=== PATIENT | male | born 1960 | race Caucasian/White ===

== ENCOUNTER 2019-04-24 08:05 | Day surgery (SDC) | payer SELFPAY ==
--- NOTE | 2019-03-31 03:31 | HP_ITS ---
Intake Vital Signs 03/31/19 Height 5 ft 11 in 03/31/19 Weight: 195 lb 03/31/19 BMI 27.1 03/31/19 BP 146/83 H 03/31/19 Blood Pressure Location Rt brachial 03/31/19 Position Sitting 03/31/19 Respiration 16 03/31/19 Pulse 57 L 03/31/19 Pulse Source Monitor 03/31/19 Temp 98.5 F 03/31/19 Temp Source Oral 03/31/19 Pulse Oximetry (%) 97 03/31/19 Oxygen Delivery Method room air Intake Visit Reasons: Constipation/CSCOPE CONSULT Rental Salesperson Required: No Is patient in pain?: No Allergies No Known Allergies Allergy (Verified 03/31/19 15:26) Medications multivitamin 1 tab PO DAILY 03/31/19 [History Confirmed 03/31/19] omega-3 fatty acids 1,000 mg capsule 1,000 mg PO DAILY 03/31/19 [History Confirmed 03/31/19] PFSH Medical History (Updated 03/31/19 @ 15:32 by Duncan Buitrago MD) Screening for malignant neoplasm of intestine (Acute) Constipation (Acute) Acid reflux (Acute) Surgical History (Updated 03/31/19 @ 15:23 by Kimberley Henderson) Hx of hand surgery (Acute) Family History Brother Heart disease Social History (Updated 03/31/19 @ 15:34 by Duncan Buitrago MD) Smoking Status: Former smoker second hand exposure: No alcohol intake: never substance use type: does not use caffeine: Yes HPI HPI HPI: DOMINGO AGUILAR, is a 59 M who presents to the office today for HPI HPI Surgical H&P: Yes HPI: DOMINGO AGUILAR, is a 59 M who presents to the office today for 2 separate concerns. One is escalating symptoms of gastroesophageal reflux disease with postprandial indigestion. On occasions he very frequently will take [id number] ranitidine therapy. He denies any previous history of upper endoscopy. He is concerned that he may have a hiatal hernia. He also is in need of a screening colonoscopy. He denies bright red blood per rectum or melena. Is never previously had a colonoscopy. He is not aware of any family history of colon polyps or colon cancer. He states that a brother required coronary bypass grafting approximately 2007. He states he underwent some testing and was instructed he was a carrier of the process. He works in a [employer]. He does a significant amount of work and denies chest pain or palpitations shortness of breath. He has not had any weight loss. He otherwise has had a good feeling of wellness. He is not on any anticoagulants. He denies history of DVT. He enjoys a good quality of life. ROS General General: No weight change, appetite, fatigue, colon cancer, breast cancer or weakness HEENT HEENT: No difficulty swallowing, eye injury, eye surgery, swollen glands or hoarseness Endo Endocrine: No thyroid disease, diabetes mellitus, thyroid cancer, Hair loss, heat intolerance or cold intolerance Skin Skin: No rash or changing moles Musc Musculoskeletal: No back problems, arthritis, rheumatoid arthritis, gout or joint pain Cardio Cardiovascular: No murmur, pacemaker, heart disease, atrial fibrillation, high blood pressure, heart attack, heart stent, palpitations, shortness of breat with exertion or chest pain Psych Psychiatric: No depression, anxiety or hearing voices Resp Respiratory: No shortness of breath, No sleep apnea, No cough, No COPD, No asthma, No emphysema, No wheezing Gastro Gastrointestinal: No abdominal pain, No nausea or vomiting, No diarrhea, No constipation, No blood in stool, Yes acid reflux, No hemorrhoids, No ulcers, No gallbladder problem, No black,tarry stools Erik Hematologic: No blood thinners, No blood disorders, No bleeding, No anemia, No blood clots Neuro Neurologic: No system reviewed and no additional complaints, except as docu, No as per HPI, No abnormal walking, No abnormal hearing, No abnormal movements, No abnormal speech, No behavioral changes, No burning sensations, No confusion, No seizure-like activity, No unsteadiness, No dizziness, No localized weakness, No frequent falls, No headache(s), No lack of coordination, No loss of vision, No memory loss, No numbness, No other visual disturbances, No radiating pain, No restless legs, No sensory deficit, No fainting, No tingling, No tremor(s), No weakness, No other Exam Const General: cooperative, healthy appearing, comfortable, no acute distress Nutritional Appearance: average body habitus Orientation: alert, awake [facility] Head: normal to inspection Resp Effort & Inspection: normal respiratory effort Auscultation: clear to auscultation bilaterally Cardio Rate: regular rate Rhythm: regular rhythm Heart Sounds: no murmurs GI Palpation: soft Auscultation: normal bowel sounds Skin Lesions: no lesions Neuro Cognition: normal cognition Extrem General: no calf tenderness bilaterally Psych Affect: normal affect Assessment & Plan Problems 1. Gastroesophageal reflux disease, esophagitis presence not specified K21.9 2. Screening for malignant neoplasm of intestine Z12.10 Plan I recommend to the patient a esophagogastroduodenoscopy with possible biopsy as well as a colonoscopy with possible biopsy or polypectomy is indicated. He is aware of the technique, benefit, risk, alternatives. Because of this nonspecific previous history of cardiac carrier I recommend a EKG be obtained. That information dates all the way back to 2007 the patient has been completely asymptomatic and able to achieve his tasks of daily living. He has had an opportunity to ask and have questions answered. We will schedule and proceed at his discretion. Cc: Dr. Frederic Buitrago M.D., F.A.C.S. Coding Level of Care Code Off vis,new,level 3 Diagnoses Gastroesophageal reflux disease, esophagitis presence not specified K21.9 ??Esophagitis presence: esophagitis presence not specified Screening for malignant neoplasm of intestine Z12.10 03/31/19 1534 <Electronically signed by Duncan larkin MD> Date _ Duncan Buitrago MD I have re-examined the patient. There are no clinical changes since date of exam.
[2019-03-31 15:24] VITALS: BMI 27.1
[2019-04-24] VITALS (7 sets, daily range): BP systolic 91–145; BP diastolic 53–93; PULSE 54–77; RESP 16; TEMP 36.1–36.5; O2SAT 94–98; BMI 26.8
[2019-04-24] MEDS: Lactated Ringers 1,000 ML 100 ML IV (08:43)
--- NOTE | 2019-04-24 09:45 | EGD_PTH ---
PATIENT: DOMINGO AGUILAR LOC: EN U#:[id number] AGE/SX: 59/M ROOM: RE04/24/[address]: Dr. Duncan Buitrago MD : 1960 BED: DIS: 04/24/2019 SPEC #: [id number] RECD: 04/24/19 11:48 STATUS: LUZ CAROL #: [id number] SHEEBA: 04/24/19 09:[address]: Duncan Buitrago DEPT: SURGICAL PATHOLOGY RECD BY: Rachel Oseguera ENTERED: 04/24/19 12:18 SP TYPE: EGD BIOPSY OT DR: Dr. Frederic Mustafa DO Tissues: A - Gastric mucous membrane B - Gastric mucous membrane Procedures: PAS Fungus (control) Special Stain Group II Special Stain Group I Surgery Specimen Level IV Alcian Blue/PAS (control) HEADER OPERATION: Colonoscopy, EGD ([facility] [place]) PRE-OP DIAGNOSIS: Screening, GERD, esophagitis TISSUE SUBMITTED: A - Antral biopsy for H. pylori and path, B - EG junction MICROSCOPIC DIAGNOSIS A. Antral biopsy: Mild gastritis. See microscopic description and comment. B. EG junction, biopsy: Fragments of gastroesophageal mucosa with focal ulceration and acute and chronic inflammation. Intestinal metaplasia (goblet cell metaplasia) is not identified. Special stain for fungi is negative for organisms; matched control is appropriate. See comment. SJ:deborah 04/27/19 COMMENT A. The results of immunohistochemistry for Helicobacter pylori will be reported separately ([id number]). B. Alcian blue/PAS stain with matched control is used in the evaluation of the specimen. The specimen predominantly consists of squamous epithelium. MICROSCOPIC DESCRIPTION Slides are reviewed. A. The specimen shows fragments of gastric mucosa with chronic inflammatory cell infiltrates in the lamina propria consisting of lymphocytes and plasma cells, consistent with mild chronic gastritis. GROSS DESCRIPTION A - Received in fixative is one container labeled with the patient's name and designated antral biopsy. The specimen consists of one irregular fragment of light elise soft tissue that measures 0.3 x 0.3 x 0.1 cm. The specimen is totally submitted in one cassette. B - Received in fixative is one container labeled with the patient's name and designated EG junction biopsy. The specimen consists of multiple irregular fragments of light elise soft tissue that in aggregate measure 1.5 x 0.5 x 0.1 cm. The specimen is totally submitted in one cassette. / PACO:deborah 04/24/19 TC:2 CPT: 58079 x2, 30520, 66068
--- NOTE | 2019-04-24 09:45 | IMM_PTH ---
PATIENT: DOMINGO AGUILAR LOC: [facility] U#:[id number] AGE/SX: 59/M ROOM: RE04/24/[address]: Dr. Duncan Buitrago MD : 1960 BED: DIS: 04/24/2019 SPEC #: [id number] RECD: 04/24/19 12:53 STATUS: LUZ REJewel #: [id number] SHEEBA: 04/24/19 09:[address]: Duncan Buitrago DEPT: IMMUNOHISTOCHEMISTRY RECD BY: Lizzeth Vegas ENTERED: 04/24/19 12:54 SP TYPE: IMMUNO OTHR DR: Dr. Frederic Mustafa DO Tissues: A - Stomach, NOS Procedures: H Pylori (initial) PHYSICIAN & INSTITUTION [place] [id number] SPECIMEN INFORMATION: Tissue Source: A - Antral biopsy Clinical Info: Screening colonoscopy, GERD, esophagitis Specimen Number: [id number] CPT code: 69838 METHODOLOGY: Deparaffinized sections of prefer/formalin-fixed tissue or PAP/DQ stained slides are incubated with monoclonal/polyclonal antibodies/oligonucleotide probes. Localization is made via biotin free immunoperoxidase method. Appropriate controls are performed and reacted as expected. Results on target cell population are indicated in the following table: RESULTS: ANTIBODY / CLONE RESULT Block A H Pylori (polyclonal) negative These tests were developed and their performance characteristics determined by [facility]. They may not have been cleared or approved by the [place]. Food and Drug Administration. The FDA has determined that such clearance or approval is not necessary. INTERPRETATION: A. Antral biopsy: Negative for Helicobacter pylori organisms. SJ:deborah 04/27/19
--- NOTE | 2019-04-24 10:38 | OP.EGD_ITS ---
Patient Name: Mark Anthony Simental Procedure Date: 04/24/2019 9:56 AM Date of : 1960 Age: 59 Procedure: Upper GI endoscopy Indications: Heartburn Providers: Duncan Buitrago MD Referring MD: Frederic Mustafa Medicines: See the Anesthesia note for documentation of the administered medications Complications: No immediate complications. Procedure: Pre-Anesthesia Assessment: - Prior to the procedure, a History and Physical was performed, and patient medications and allergies were reviewed. The patient's tolerance of previous anesthesia was also reviewed. The risks and benefits of the procedure and the sedation options and risks were discussed with the patient. All questions were answered, and informed consent was obtained. Prior Anticoagulants: The patient has taken no previous anticoagulant or antiplatelet agents. ASA Grade Assessment: II - A patient with mild systemic disease. After reviewing the risks and benefits, the patient was deemed in satisfactory condition to undergo the procedure. After obtaining informed consent, the endoscope was passed under direct vision. Throughout the procedure, the patient's blood pressure, pulse, and oxygen saturations were monitored continuously. The gastroscope was introduced through the mouth, and advanced to the second part of duodenum. The upper GI endoscopy was accomplished without difficulty. The patient tolerated the procedure well. Scope In: 10:07:11 AM Scope Out: 10:12:29 AM Total Procedure Duration Time 0 hours 5 minutes 18 seconds Findings: LA Grade A (one or more mucosal breaks less than 5 mm, not extending between tops of 2 mucosal folds) esophagitis with no bleeding was found 40 cm from the incisors. Biopsies were taken with a cold forceps for histology. A 1 cm hiatal hernia was present. Diffuse mildly erythematous mucosa without bleeding was found in the gastric antrum. Biopsies were taken with a cold forceps for histology. The examined duodenum was normal. Impression: - LA Grade A reflux esophagitis. Biopsied. - 1 cm hiatal hernia. - Erythematous mucosa in the antrum. Biopsied. - Normal examined duodenum. Recommendation: - Discharge patient to home. - Resume previous diet. - Continue present medications. - Use Prilosec (omeprazole) 40 mg PO daily. Procedure Code(s): --- Professional --- 65340, Esophagogastroduodenoscopy, flexible, transoral; with biopsy, single or multiple Diagnosis Code(s): --- Professional --- K21.0, Gastro-esophageal reflux disease with esophagitis K44.9, Diaphragmatic hernia without obstruction or gangrene K31.89, Other diseases of stomach and duodenum CPT copyright 2017 [employer]. All rights reserved. The codes documented in this report are preliminary and upon steamfitter supervisor review may be revised to meet current compliance requirements. Duncan Buitrago MD 04/24/2019 10:38:04 AM This report has been signed electronically. Number of Addenda: 0 Note Initiated On: 04/24/2019 9:56 AM
--- NOTE | 2019-04-24 10:38 | OP.CCLET_ITS ---
04/24/2019 Frederic Mustafa Re : Upper GI endoscopy procedure for Mark Anthony Simental [place] This procedure was performed on Wednesday, April 24, 2019. My impressions and recommendations are as follows: Impressions : - LA Grade A reflux esophagitis. Biopsied. - 1 cm hiatal hernia. - Erythematous mucosa in the antrum. Biopsied. - Normal examined duodenum. Recommendations : - Discharge patient to home. - Resume previous diet. - Continue present medications. - Use Prilosec (omeprazole) 40 mg PO daily. My findings are described in the full procedure note, which is enclosed. If I can be of further assistance, please feel free to contact me at Doctor phone number(s): Work: . Sincerely, Duncan Buitrago MD 04/24/2019 10:38:04 AM This report has been signed electronically.
--- NOTE | 2019-04-24 10:41 | OP.COLON_ITS ---
Patient Name: Mark Anthony Simental Procedure Date: 04/24/2019 10:13 AM Date of : 1960 Age: 59 Procedure: Colonoscopy Indications: Screening for colorectal malignant neoplasm Providers: Duncan Buitrago MD Referring MD: Frederic Mustafa Medicines: See the Anesthesia note for documentation of the administered medications Patient Profile: Last Colonoscopy: none. The patient's first colonoscopy is today. Complications: No immediate complications. Procedure: Pre-Anesthesia Assessment: - Prior to the procedure, a History and Physical was performed, and patient medications and allergies were reviewed. The patient's tolerance of previous anesthesia was also reviewed. The risks and benefits of the procedure and the sedation options and risks were discussed with the patient. All questions were answered, and informed consent was obtained. Prior Anticoagulants: The patient has taken no previous anticoagulant or antiplatelet agents. ASA Grade Assessment: II - A patient with mild systemic disease. After reviewing the risks and benefits, the patient was deemed in satisfactory condition to undergo the procedure. After I obtained informed consent, the scope was passed under direct vision. Throughout the procedure, the patient's blood pressure, pulse, and oxygen saturations were monitored continuously. The pediatric colonoscope was introduced through the anus and advanced to the cecum, identified by appendiceal orifice and ileocecal valve. The colonoscopy was performed with moderate difficulty due to multiple diverticula in the colon. The patient tolerated the procedure well. The quality of the bowel preparation was good. Scope In: 10:15:08 AM Scope Withdrawal Time 0 hours 6 minutes 33 seconds Scope Out: 10:33:32 AM Total Procedure Duration Time 0 hours 18 minutes 24 seconds Findings: The perianal and digital rectal examinations were normal. Multiple diverticula were found in the sigmoid colon and descending colon. The exam was otherwise without abnormality. Impression: - Diverticulosis in the sigmoid colon and in the descending colon. This was extensive and effort was required to gradually advance the scope through this highly involved area. - The examination was otherwise normal. - No specimens collected. Recommendation: - Discharge patient to home. - Resume previous diet. - Continue present medications. - Await pathology results. - Repeat colonoscopy in 10 years for screening purposes. Procedure Code(s): --- Professional --- 77885, Colonoscopy, flexible; diagnostic, including collection of specimen(s) by brushing or washing, when performed (separate procedure) Diagnosis Code(s): --- Professional --- Z12.11, Encounter for screening for malignant neoplasm of colon K57.30, Diverticulosis of large intestine without perforation or abscess without bleeding CPT copyright 2017 [employer]. All rights reserved. The codes documented in this report are preliminary and upon fund raiser review may be revised to meet current compliance requirements. Duncan Buitrago MD 04/24/2019 10:41:04 AM This report has been signed electronically. Number of Addenda: 0 Note Initiated On: 04/24/2019 10:13 AM
--- NOTE | 2019-04-24 10:41 | OP.CCLET_ITS ---
04/24/2019 Frederic Mustafa Re : Colonoscopy procedure for Mark Anthony Simental [place] This procedure was performed on Wednesday, April 24, 2019. My impressions and recommendations are as follows: Impressions : - Diverticulosis in the sigmoid colon and in the descending colon. This was extensive and effort was required to gradually advance the scope through this highly involved area. - The examination was otherwise normal. - No specimens collected. Recommendations : - Discharge patient to home. - Resume previous diet. - Continue present medications. - Await pathology results. - Repeat colonoscopy in 10 years for screening purposes. My findings are described in the full procedure note, which is enclosed. If I can be of further assistance, please feel free to contact me at Doctor phone number(s): Work: . Sincerely, Duncan Buitrago MD 04/24/2019 10:41:04 AM This report has been signed electronically.
== END 2019-04-24 11:20 | disposition home or self-care (01) ==
LOC: EN 08:08 → AC 08:09
PROVIDERS: PCP Family Medicine; Referring Provider Family Medicine; Visit Provider Surgery
PROC: 0DJD8ZZ Inspection of Lower Intestinal Tract, Via Natural or Artificial Opening Endoscopic (ICD-10-PCS; CPT 45378; principal; 2019-04-24 09:40)
DX: Z12.11 Encounter for screening for malignant neoplasm of colon (principal); K57.30 Diverticulosis of large intestine without perforation or abscess without bleeding; K21.0 Gastro-esophageal reflux disease with esophagitis; K44.9 Diaphragmatic hernia without obstruction or gangrene; Z87.891 Personal history of nicotine dependence
CPT/HCPCS: 43239; 45378; 88305; 88312; 88313; 88342; 93005; J7120; J2405